=== PATIENT | male | born 1985 | race Caucasian/White ===

== ENCOUNTER 2018-11-15 20:06 | Emergency (ER) | payer MEDICAID ==
[~2018-11-15] VITALS: Ht 165.1 cm; Wt 85.0 kg
[~2018-11-15 20:06] MED LIST: AMOX1TAB10 PO; AMOX500C2 PO; IBUP-1542 PO; IBUP-1561 PO; PROM5SYR2 PO
[2018-11-15 20:09] VITALS: Ht 165.1 cm; Wt 85.0 kg
--- NOTE | 2018-11-15 20:59 | ERD ---
ER Documentation Chief Complaint Chief Complaint HEADACHE WITH GRN BODY PAIN WITH DRY COUGH X5DAYS HPI 33-year-old male, previously healthy, presents to the emergency department, complaining of 5 days with progressive worsening of upper respiratory symptoms including fever, chills, productive cough, body aches and general malaise. The patient denies difficulty breathing, no headache, no nausea or vomiting. No rashes, no history of recent traveling. ROS All systems reviewed and are negative except as per history of present illness. Medications Home Meds Active Scripts Ibuprofen* (Motrin*) 400 Mg Tab, 400 MG PO Q6H PRN for PAIN AND OR ELEVATED TEMP, #30 TAB Prov:JEANA SANABRIA MD 11/15/18 Promethazine HCl/Codeine (Prometh-Codein 6.25-10 mg/5 ml) 5 Ml Syrup, 5 ML PO TID, #60 ML Prov:JEANA SANABRIA MD 11/15/18 Amoxicillin* (Amoxicillin*) 500 Mg Cap, 500 MG PO TID for 7 Days, CAP Prov:JEANA SANABRIA MD 11/15/18 Ibuprofen* (Motrin*) 600 Mg Tab, 600 MG PO Q6, #15 TAB Prov:VIDHI GUERRERO MD 05/14/18 Amoxicillin/Potassium Clav (Amox-Clav 875-125 mg Tablet) 875-125 mg Tab, 1 TAB PO BID for 7 Days, #14 TAB Prov:VIDHI GUERRERO MD 05/14/18 Allergies Allergies: Coded Allergies: No Known Allergy (Unverified , 05/14/18) PMhx/Soc Medical and Surgical Hx: pt denies Medical Hx, pt denies Surgical Hx Hx Miscellaneous Medical Probl: No Hx Alcohol Use: Yes (Ocassional) Hx Substance Use: No Hx Tobacco Use: Yes Smoking Status: Current every day smoker Physical Exam Vitals Vital Signs Date Temp Pulse Resp B/P (MAP) Pulse Ox O2 O2 Flow FiO2 Time Delivery Rate 11/15/18 98.3 78 16 118/66 98 Room Air 22:04 (83) 11/15/18 98.8 98 18 123/66 98 20:09 (85) Physical Exam Patient is in moderate distress due to cough. EYES: PERRLA, EOMI, injected sclerae EARS: Canals clear, erythematous tympanic membranes THROAT: Erythematous oropharynx. NECK: Supple, No lymphadenopathy. Full ROM without pain or tenderness. HEART: RRR, no rubs, murmurs, clicks or gallops. LUNGS: Bilateral rhonchi to auscultation. ABDOMEN: Soft, non-tender without masses or hepatosplenomegaly. EXTREMITIES: No edema bilaterally. BACK: Full ROM, no deformity, normal back exam NEURO: Cranial nerves grossly intact, no motor or sensory deficit Procedures/MDM At the time of discharge, patient with nontoxic appearance, vital signs stable, no respiratory distress. Differential diagnosis include but not limited to: upper vs lower respiratory infection bacterial/viral/fungal. Asthma, COPD, pneumonitis, allergies, GERD. Less likely pulmonary embolism, cardiac related or malignancy, but still is a possibility. Physical examination and clinical presentation consistent most likely with viral infection with early superimposed bacterial infection. During the ED course the patient remained stable, no new complaints. Treatment options and clinical impression discussed with the patient who agrees with management. The patient is stable to be treated outpatient and will be discharged home. Some side effects of prescribed medications (headache, rash, nausea, vomiting, diarrhea, interactions with other medications) were reviewed. The patient needs to follow up with the primary care provider in the next 48h. If symptoms persist, worsen or new symptoms develop, then patient should return to the ED immediately. Disclaimer: Inadvertent spelling and grammatical errors are likely due to EHR/dictation software use and do not reflect on the overall quality of patient care. Also, please note that the electronic time recorded on this note does not necessarily reflect the actual time of the patient encounter. Departure Diagnosis: Primary Impression: Cough Additional Impression: Fever Condition: Stable Additional Instructions: Muchas michael por [facility] para mcdonald servicio. Esperamos que en mcdonald visita a la avinash de emergencia mcdonald problema medico haya sido solucionado y que se sienta mucho mejor. Para estar seguros que mcdonald mejoria sigue en proceso, le pedimos el favor de hacer davon reynold de seguimiento medico con mcdonald doctor primario en los proximos 2-4 zhao. Lleve con usted estos documentos y las medicinas recetadas. Si della sintomas empeoran, NO SE ESPERE, por favor regrese a avinash de emergencia INMEDIATAMENTE. En ti que usted no tenga un mdico de atencin primaria: Llame al mdico o clnica comunitaria de referencia que aparece abajo jose angel las horas de consultorio para hacer davon reynold para que le vean. CLINICAS: [facility] [phone] [facility] [phone] [id number] [facility] [phone] [facility]. [facility] [phone] [facility] [phone] [address] [facility]. [phone] JEANA DUARTE MD Nov 15, 2018 20:59
[2018-11-15 22:04] VITALS: BP 118/66; PULSE 78; RESP 16
== END 2018-11-15 22:05 | disposition home or self-care (01) ==
LOC: FTE 20:06
DX: R05 Cough (principal); R50.9 Fever, unspecified; F17.210 Nicotine dependence, cigarettes, uncomplicated
CPT/HCPCS: 99283